=== PATIENT | male | born 1980 | race Hispanic/Latino ===

== ENCOUNTER 2019-10-09 23:21 | Emergency (ER) | payer OTHER ==
[~2019-10-09] VITALS: Ht 172.7 cm; Wt 83.9 kg
[2019-10-09 23:57] LABS: PLATELET COUNT 467 K/uL (142-355)
[2019-10-10 00:10] LABS: POTASSIUM 3.6 mmol/L (3.6-5.2)
[2019-10-10 01:29] VITALS: BP 110/78; TEMP 98.1
== END 2019-10-10 01:30 | disposition home or self-care (01) ==
LOC: ED 23:21
PROVIDERS: Family Medicine
DX: L27.0 Generalized skin eruption due to drugs and medicaments taken internally (principal); T36.1X5A Adverse effect of cephalosporins and other beta-lactam antibiotics, initial encounter
CPT/HCPCS: 36415; 80053; 85027; 96374; 96375; 99283; 99284; J1200; J2930